=== PATIENT | male | born 1940 | race Caucasian/White ===

== ENCOUNTER → 2023-09-15 | Outpatient (CLI) | payer MEDICARE, MEDICAID ==
[~2023-09-15] MED LIST: ACET-683 PO; ALLO10TA PO; ATOR40TA75 PO; BACL10TA2 PO; CHLO125TA PO; ECOT81TA5 PO; FLOM0.4C39 PO; FURO40TA2 PO; KRIL1000 PO; LISI20TA33 PO; MEMA10TA PO; PRED25TA PO; Prevagen; TRES1INJ2 SC
== END ==
LOC: M PLARAD 12:35
PROVIDERS: ATTEND Internal Medicine Hematology & Oncology
DX: C18.7 Malignant neoplasm of sigmoid colon (principal)
CPT/HCPCS: 78815; A9552

== ENCOUNTER → 2023-11-19 | Outpatient (CLI) | payer MEDICARE ==
[~2023-11-19] MED LIST changes: +FERR325T3 PO
== END ==
LOC: M WHC 12:31
PROVIDERS: ATTEND Registered Nurse
DX: N62 Hypertrophy of breast (principal)
CPT/HCPCS: 77066; G0279

== ENCOUNTER → 2024-03-23 | Outpatient (CLI) | payer MEDICARE ==
[~2024-03-23] MED LIST changes: +ISOVUE-370 76% 100ML VIAL ONE; +MECL-136
== END ==
LOC: M PLAIMG 11:11
PROVIDERS: ATTEND Internal Medicine Hematology & Oncology
DX: C18.9 Malignant neoplasm of colon, unspecified (principal); N28.1 Cyst of kidney, acquired; K57.30 Diverticulosis of large intestine without perforation or abscess without bleeding; E27.8 Other specified disorders of adrenal gland; I70.0 Atherosclerosis of aorta; I25.10 Atherosclerotic heart disease of native coronary artery without angina pectoris

== ENCOUNTER → 2024-10-15 | Outpatient (CLI) | payer MEDICARE, MEDICAID ==
[~2024-10-15] MED LIST changes: +BUME0.5T2; -FLOM0.4C39 PO; +ISOVUE-370 76% 100 ML VIAL As Ordered ONE; -ISOVUE-370 76% 100ML VIAL ONE; +METO1TAB87; +NITR0.4D6; +TAMS-18 PO; +TRES100I SC
== END ==
LOC: M RAD 13:44
DX: Z85.038 Personal history of other malignant neoplasm of large intestine (principal); K76.89 Other specified diseases of liver; N28.1 Cyst of kidney, acquired; M79.81 Nontraumatic hematoma of soft tissue; D17.5 Benign lipomatous neoplasm of intra-abdominal organs; R91.1 Solitary pulmonary nodule
CPT/HCPCS: 71260; 74177; Q9967

== ENCOUNTER → 2024-11-01 | Outpatient (CLI) | payer MEDICARE, MEDICAID ==
[~2024-11-01] MED LIST changes: -ISOVUE-370 76% 100 ML VIAL As Ordered ONE
== END ==
LOC: M RAD 13:55
PROVIDERS: ATTEND Neurological Surgery
DX: S06.5X0D Traumatic subdural hemorrhage without loss of consciousness, subsequent encounter (principal)

== ENCOUNTER → 2024-11-02 | Outpatient (CLI) | payer MEDICARE, MEDICAID ==
[2024-11-02 18:11] LABS: BASO # 0.0 10^3/uL (0.0-0.2); BASO % 0.3 % (0.0-1.0); EOS # 0.0 10^3/uL (0.0-0.5); EOS % 0.3 % (0.0-3.0); LYMPH # 1.9 10^3/uL (1.5-5.0); LYMPH % 14.9 % (24.0-44.0); MONO # 0.6 10^3/uL (0.0-0.8); MONO % 5.0 % (2.0-8.0); NEUTROPHILS # 9.8 10^3/uL (1.5-8.5); NEUTROPHILS % 79.0 % (36.0-66.0); PLATELET COUNT, AUTOMATED 273 10^3/uL (150-450)
[2024-11-02 19:09] LABS: IRON (FE) 18.0 UG/DL (65-175); PERCENT SATURATION 7.7 % (19.7-50.0)
[2024-11-02 19:16] LABS: VITAMIN B12 LEVEL 530.0 PG/ML (211-911)
== END ==
LOC: M LAB 16:43
PROVIDERS: ATTEND Internal Medicine Hematology & Oncology
DX: C18.9 Malignant neoplasm of colon, unspecified (principal)